=== PATIENT | male | born 1960 | race Caucasian/White ===

== ENCOUNTER → 2020-04-21 | Outpatient (CLI) | payer OTHER ==
[~2020-04-21] MED LIST: ADVIL200 M3 PO; DILANTIN100 MG PO; ELIQUIS5 MG PO; FISH OIL 1,0001 EAC9 PO; LIPITOR10 MG PO; LOTREL 10-40 M1 EACH PO; MOVE FREE ULTR PO; OXYCODONE HCL 55 MG PO; TRAMADOL 50 MG50 MG PO
[2020-04-21 11:04] LABS: ABSOLUTE BASOPHILS 0.1 thou/uL (0.0-0.2); ABSOLUTE EOSINOPHILS 0.3 thou/uL (0.0-0.7); ABSOLUTE MONOCYTES 0.7 thou/uL (0.0-1.2); ABSOLUTE NEUTROPHILS 5.6 thou/uL (1.6-8.1); BASOPHILS 1.3 %; EOSINOPHILS 3.8 %; HEMATOCRIT 45.3 % (42.0-52.0); HEMOGLOBIN 15.5 gm/dL (14.0-18.0); LYMPHOCYTES 22.6 %; MCH 32.8 pg (26.0-34.0); MCHC 34.2 g/dL (28.0-37.0); MCV 95.9 fL (80.0-100.0); MONOCYTES 8.2 %; MPV 7.1 fl. (7.2-11.1); NUCLEATED RBCS 0 /100WBC; PLATELET COUNT* 346 thou/uL (150-400); POLYS 64.1 %; RBC 4.72 mil/uL (4.50-6.00); RDW-CV 12.4 % (10.5-14.5); WBC 8.8 thou/uL (4.0-11.0)
[2020-04-21 11:51] LABS: ALBUMIN 4.1 g/dL (3.4-5.0); CALCIUM 9.1 mg/dL (8.5-10.1); CREATININE 0.8 mg/dL (0.6-1.3); POTASSIUM 4.3 mmol/L (3.5-5.1); TOTAL BILIRUBIN 0.3 mg/dL (<0.1-1.0); TOTAL PROTEIN 7.4 g/dL (6.4-8.2)
--- NOTE | 2020-04-21 15:59 | EKG ---
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
== END ==
LOC: M.LAB 10:14
PROVIDERS: ATTEND Orthopaedic Surgery
DX: Z01.812 Encounter for preprocedural laboratory examination (principal); Z20.828 Contact with and (suspected) exposure to other viral communicable diseases

== ENCOUNTER 2020-04-28 10:15 | Inpatient (IN) | payer OTHER ==
[~2020-04-28] VITALS: Ht 177.8 cm; Wt 117.9 kg
[~2020-04-28 10:15] MED LIST changes: -ELIQUIS5 MG PO; -OXYCODONE HCL 55 MG PO
[2020-04-28 12:00] VITALS: BP 161/91
--- NOTE | 2020-04-28 16:12 | OP ---
[address] [place] [address] OPERATIVE REPORT Name: KARANCHALINO Room: [address] Carey Ayala#: [id number] Admission: 04/28/20 Attend Phys: Ezekiel Zimmerman Discharge: Date of : 64 Report #: [id number] THIS REPORT FOR: //name// cc: Ezekiel Ewing MD, Kevin R. MD ~ CC: Ezekiel Singh DICTATED BY: Keaton Ndiaye DO DATE OF SERVICE: 04/28/2020 PREOPERATIVE DIAGNOSIS: Left knee degenerative joint disease. POSTOPERATIVE DIAGNOSIS: Left knee degenerative joint disease. PROCEDURE PERFORMED: Left total knee arthroplasty. ORTHOPEDIC IMPLANTS: Mauri Persona total knee arthroplasty system utilizing the following components: A. Size 11 cemented CR femur. B. Size H cemented tibial baseplate. C. Size 13 medial congruent polyethylene liner. D. Size 38 mm cemented 3 peg patella. E. Two bags of Biomet bone cement. SURGEON: Juan Jose Ojeda DO ASSISTANTS: Keaton Ndiaye DO and Fish Rogers DO ANESTHESIA: General with regional nerve block by Anesthesia. ESTIMATED BLOOD LOSS: 150 mL DRAINS: None. SPECIMENS: None. COMPLICATION: None. CONDITION OF THE PATIENT: Stable. DISPOSITION: PACU, then to Med/Surg floor. ANTIBIOTICS: 2 grams Ancef IV piggyback prior to procedure. [address] [place] [address] OPERATIVE REPORT Name: KARAN,PAUL Ezekiel [address]#: [id number] Admission: 04/28/20 Attend Phys: Ezekiel Zimmerman Discharge: Date of : 64 Report #: [id number] TOURNIQUET TIME: Approximately 25 minutes at 300 mmHg. INDICATIONS FOR PROCEDURE: The patient is a very pleasant 60-year-old male who is having worsening left knee pain. He failed conservative care. He was ready to proceed with left total knee arthroplasty. Prior to procedure, discussed the risks, benefits, indications, and complications associated with surgery including but not limited to infection, wound healing complications, neurovascular injury, instability, stiffness, hardware failure, need for repeat surgery, chronic pain, DVT, PE, end-organ damage, complications and anesthesia as well as other possibilities. The patient demonstrated god understanding and wanted to proceed with surgery. Consent was signed prior to surgery. INTRAOPERATIVE FINDINGS: Surgical inspection of the knee demonstrated evidence of advanced osteoarthritis with tricompartmental degenerative changes with eburnated bone ends, osteophytic lipping as well as hypertrophic synovium. The joint fluid appeared normal. DESCRIPTION OF PROCEDURE: I met with the patient in the preoperative suite and the correct left knee was marked. The patient was taken to the operating room and placed supine on the well-padded table. He was given general anesthetic. Left lower extremity was then sterilely prepped and draped in standard fashion. At this time, a surgical timeout was completed, indicating the correct patient, operative site and procedure performed. All in the room were in agreement and we elected to proceed. Marked out the standard midline incision and then this incision was made with the scalpel. Dissection was taken down to the level of the quad tendon and capsule. A medial patellofemoral arthrotomy was then performed. Medial and lateral periosteal dissection and sleeves were then developed. Anterior menisci were excised and then the patella was everted and the knee was brought into flexion. At this point, excess Hoffa's fat pad as well as any anterior menisci were excised as well as excise the ACL. In any osteophytic lipping was removed with rongeur. At this point, introduced the intramedullary drill. Next, the intramedullary alignment guide and a standard distal femur resection was made after the alignment guide was pinned into place with a cut at 5 degrees of valgus, taking an additional millimeters off from the standard distal femoral cut. Next, we turned our attention to the proximal tibia and extramedullary tibial alignment guide was placed and pinned into position following the medial one-third of the tibial tubercle and the second ray distally. This was pinned into position and utilizing the depth stylus taken 2 mm off the low medial side. At this point, the proximal tibia resection was performed in standard fashion. The leg was brought into extension and a 10 mm extension block was able to be place indicating adequate resection. I removed the pins, knee was brought into flexion again and the femur sizer was then placed. Due to the deficient medial posterior condyle, an ____ was held into the foot pedal on the medial side with the guide set at 3 degrees of external rotation. The drill holes were made and the femur was sized to an 11. The 11 mm 4-in-1 cutting block was then pinned into position. A standard [address] [place] [address] [place] [address] OPERATIVE REPORT Name: CHALINO RUSSO Room: [facility] Jamie#: [id number] Admission: 04/28/20 Attend Phys: Ezekiel Zimmerman Discharge: Date of : 64 Report #: [id number] anterior, posterior and chamfer cuts were then performed. At this time, turned our attention to trialing of the components and the tibia was sized and pinned into position. Next, the femoral trial was placed. The 10 mm trial polyethylene was placed and noted to have some laxity therefore sized up to 13 mm polyethylene and this demonstrated excellent stability with varus, valgus stress as well as full extension and flexion without any signs of mid flexion stability. At this point, we turned our attention to the patella. This was cut in a freehand fashion and then the patella was sized and drilled, and trial patella was noted to track well with the range of motion. Removed the patellar trial. The femur was drilled, and removed. Next, we performed a proximal tibia reaming and a cruciform punch. The trial tibia was removed. The bone ends were thoroughly cleansed with Pulsavac and allowed to dry. The cement was mixed on the back table. Next, cemented the components in standard fashion starting with the tibia, followed by the femur and a ____ mm trial spacer was utilized as the cement hardened. Once all components were cemented into position, the patellar clamp was removed and verified excellent stability with a 13 mm trial polyethylene. There is full range of motion with no instability in mid flexion and stable varus valgus stress and extension. The tibial trial was removed. The tibial tray was cleaned and the final 13 mm polyethylene liner was placed and locked into position. Knee was once again thoroughly irrigated. Tourniquet was let down and of note, the tourniquet was just utilizing during the time of cementing of the components. Hemostasis was achieved with electrocautery. Next, closed the capsule in standard fashion utilizing a #1 Ti-Cron as well as #1 Vicryl in a [id number] fashion. Subcutaneous tissue was then irrigated and the subcutaneous tissue was closed with a 2-0 Monocryl in a simple inverted fashion. A new ChloraPrep was also placed around the skin edges for closure. Then, the 3-0 Stratafix was a random followed by skin glue. Dressing consisted of Mepilex and HANNA hose. Needle and sponge counts were correct x 2 at the end of procedure. The patient was awakened from anesthesia and transferred to PACU in stable condition. <ELECTRONICALLY SIGNED> By: Juan Jose Ojeda DO 04/28/20 1612 1455 [id number] Jose Ojeda DO /nt
[2020-04-28 18:00] VITALS: BP 148/84
[2020-04-28 20:41] VITALS: BP 147/69
[2020-04-28 23:51] VITALS: BP 141/66
[2020-04-29 03:27] VITALS: BP 165/74
[2020-04-29 04:03] LABS: HEMATOCRIT 37.1 % (42.0-52.0); HEMOGLOBIN 12.6 gm/dL (14.0-18.0)
[2020-04-29 08:07] VITALS: BP 142/78
[2020-04-29] MEDS ORDERED: OXYCODONE HCL 55 MG PO (09:48)
[2020-04-29] MEDS ORDERED: ELIQUIS5 MG PO (09:48)
[2020-04-29 11:24] VITALS: BP 132/68
[2020-04-29 16:13] VITALS: BP 133/55
[2020-04-29 22:30] VITALS: BP 150/69
[2020-04-30] VITALS (7 sets, daily range): BP systolic 133; BP diastolic 60
[2020-04-30 04:47] LABS: HEMATOCRIT 32.8 % (42.0-52.0); HEMOGLOBIN 11.4 gm/dL (14.0-18.0)
== END 2020-04-30 15:45 | disposition home or self-care (01) | DRG 470 ==
LOC: M.PRE → EDSTATUS 10:44 → M.SUR 11:20 → M.TBA 11:24 → M.PRE 11:37 → M.SUR 12:02 → M.PRE 14:08 → M.ORTHSURG 18:13
PROVIDERS: Orthopaedic Surgery; ADMIT Internal Medicine; ATTEND Internal Medicine
PROC: 0SRD0J9 Replacement of Left Knee Joint with Synthetic Substitute, Cemented, Open Approach (ICD-10-PCS; principal; 2020-04-28)
DX: M17.12 Unilateral primary osteoarthritis, left knee (principal); I10 Essential (primary) hypertension; F17.210 Nicotine dependence, cigarettes, uncomplicated; Z79.899 Other long term (current) drug therapy

== ENCOUNTER → 2020-06-03 | Outpatient (CLI) | payer OTHER ==
[~2020-06-03] MED LIST changes: +ELIQUIS5 MG PO; +OXYCODONE HCL 55 MG PO
== END ==
LOC: M.LAB 09:43
PROVIDERS: ATTEND Orthopaedic Surgery
DX: Z01.812 Encounter for preprocedural laboratory examination (principal); Z20.828 Contact with and (suspected) exposure to other viral communicable diseases

== ENCOUNTER → 2020-06-10 | Day surgery (SDC) | payer OTHER ==
--- NOTE | 2020-06-12 06:48 | OP ---
[address] [address] OPERATIVE REPORT Name: CHALINO RUSSO Room: [facility].#: [id number] Admission: 06/10/20 Attend Phys: Juan Jose Ojeda DO Discharge: Date of : 64 Report #: [id number] THIS REPORT FOR: //name// cc: Ezekiel Ewing MD, Kevin R. MD ~ CC: Juan Jose Ewing DATE OF SERVICE: 06/10/2020 PREOPERATIVE DIAGNOSIS: Arthrofibrosis, post-previous left total knee arthroplasty. POSTOPERATIVE DIAGNOSIS: Arthrofibrosis, post-previous left total knee arthroplasty. SURGERY PERFORMED: Manipulation under anesthesia, left knee. SURGEON: Juan Jose Ojeda DO. ANESTHESIA: General. ANTIBIOTICS: The patient has had no antibiotics. ESTIMATED BLOOD LOSS: None. SPECIMENS: There are no specimens. GROSS FINDINGS: Prior to surgery, this gentleman demonstrated 0-80 degrees range of motion, 120 post-manipulation. X-rays, post-manipulation, no fracture, dislocation seen, well aligned prosthesis. SURGERY IN DETAIL: The patient was taken to the operating room and placed on the table, given the benefit of general anesthetic. Timeout was called and verified for left knee STERLING and verified by everyone in the room. Surgery begun with gentle manipulation of the knee multiple times in flexion, extension and mobilization of the patella with significant improvement as stated above. Post x-rays taken demonstrated no fractures. He was transferred from the operative table and taken to recovery in stable condition. I attest I was present for the entire surgery. <ELECTRONICALLY SIGNED> By: Juan Jose Ojeda DO 06/12/20 0648 0732 [id number] Jose Ojeda DO /nt
== END | disposition home or self-care (01) ==
LOC: M.SUR 05:57
PROVIDERS: ATTEND Orthopaedic Surgery
DX: M24.662 Ankylosis, left knee (principal); M25.562 Pain in left knee; Z96.652 Presence of left artificial knee joint; Z98.890 Other specified postprocedural states; Z79.899 Other long term (current) drug therapy; Z88.0 Allergy status to penicillin; Z88.8 Allergy status to other drugs, medicaments and biological substances